=== PATIENT | female | born 1985 ===

== ENCOUNTER 2019-04-05 19:16 | Inpatient (IN) | payer OTHER ==
[~2019-04-05] VITALS: Ht 165.1 cm; Wt 88.9 kg
[~2019-04-05 19:16] MED LIST: PRENATAL TABLE1 EACH PO
[2019-04-08] MEDS ORDERED: Tylenol #3 PO (08:58)
== END 2019-04-08 11:58 | disposition home or self-care (01) | DRG 807 ==
LOC: LDR 19:16 → OB/GYN 04-06 15:21
PROVIDERS: ADMIT Obstetrics & Gynecology
PROC: 10E0XZZ Delivery of Products of Conception, External Approach (ICD-10-PCS; principal; 2019-04-06)
PROC: 0HQ9XZZ Repair Perineum Skin, External Approach (ICD-10-PCS; 2019-04-06)
PROC: 4A0HXFZ Measurement of Products of Conception, Cardiac Rhythm, External Approach (ICD-10-PCS; 2019-04-06)
DX: O70.0 First degree perineal laceration during delivery (principal); Z37.0 Single live birth; O13.3 Gestational [pregnancy-induced] hypertension without significant proteinuria, third trimester; Z3A.38 38 weeks gestation of pregnancy